=== PATIENT | male | born 1980 | race Caucasian/White ===

== ENCOUNTER 2017-12-07 13:58 | Emergency (ER) | payer SELFPAY ==
[2017-12-07 13:59] VITALS: BP 129/103; PULSE 85; RESP 16; TEMP 36.9; O2SAT 98; BMI 29.7
--- NOTE | 2017-12-07 15:06 | ED.DCSUM_ITS ---
- ER Visit Summary Date of Service: 12/07/17 Chief Complaint: Right lower leg sore and draining History of Present Illness: The patient is a 37 M no senior past medical or surgical history. Patient states he had a small pimple on his right lower leg earlier in the week. It seemed to have gotten bigger and now is draining puslike material. He denies any fever or chills. He does not know if he was bit by something or if this is just an abscess. He denies any systemic symptoms. Physical Examination: Well-appearing young male. Vital signs are stable afebrile. No acute distress. H EENT exam unremarkable. Lungs clear to auscultation. Heart regular rhythm no murmur. Abdomen soft nontender. Moving all 4 extremities neurovascularly intact. His right lower mid calf has small purulent discharge consistent with an early abscess. The skin is mildly tender. There is about a 2 in.? area of cellulitis. There is no fluctuance. This is also actively draining. Is neurovascularly intact. Otherwise exam unremarkable. Nothing to incise and drain at this time. Test Results: None Emergency Department Course and Treatment: Treated with p.o. Keflex and Bactrim here. Treatment Plan: Bactrim for 10 days. Keflex for 10 days. Follow-up as needed. Return if worse. Disposition: Discharge Impression: Right lower leg draining abscess This note was generated with [facility] dictation software. It may contain incorrect words, spelling, and punctuation that were not noted in review of the chart prior to signing ED Disposition - Plan for ED Patient: Chief Complaint: Lower Extremity Injury Referrals: Care Physician,No Primary [Primary Care Provider] -
--- NOTE | 2017-12-07 15:06 | ED.DEP ---
ED Disposition - Plan for ED Patient: Disposition: Home or Assisted Living Chief Complaint: Lower Extremity Injury Instructions: ED Staph Infec Abx Tx Only Prescriptions: Cephalexin [Keflex] 500 mg PO Q6 #40 cap Smz/Tmp Ds [Bactrim Ds] 1 tab PO BID #20 tab Referrals: Dangelo Weston MD [STAFF PHYSICIAN] - Additional Instructions: Warm compresses to right leg. Bactrim 1 pill twice a day for 10 days. Keflex 1 pill 4 times a day for 10 days. These are the antibiotics to resolve this infection. This should progressively get better if it is getting a lot worse or develops a hard swollen abscess that would need to be drained.
[2017-12-07] MEDS: Smz/Tmp Ds Tablet 1 TABLET PO (15:07)
[2017-12-07] MEDS: Cephalexin 250 MG Capsule 500 MG PO (15:07)
== END 2017-12-07 15:13 | disposition home or self-care (01) ==
PROVIDERS: Emergency Provider Emergency Medicine
DX: L02.415 Cutaneous abscess of right lower limb (principal); Z72.0 Tobacco use
CPT/HCPCS: 99283